=== PATIENT | male | born 1970 | race Caucasian/White ===

== ENCOUNTER 2018-02-08 17:22 | Observation (INO) | payer SELFPAY ==
[2018-02-08] MEDS ORDERED: BABY ASPIRIN 81 MG CHEW PO ONE (17:32)
[2018-02-08] MEDS ORDERED: NITRO-BID 2% UD PACKETS TOP ONE (17:38)
[2018-02-08] MEDS ORDERED: NITRO-BID 2% UD PACKETS ONE (17:39)
[2018-02-08] MEDS ORDERED: Sodium Chloride 0.9% 1000 ML 1,000 ML IV SCH (17:45)
--- NOTE | 2018-02-08 17:45 | ERPHSYRPT ---
- History of Present Illness Time Seen by Provider: 02/08/18 17:35 Historian: patient Exam Limitations: no limitations Physician History: 47-year-old white male arrives with complaint of pain in his left upper anterior chest symptoms since approximately 4:00 he began while he was walking up a flight of stairs. He states he is associated with shortness of breath with this no nausea. Patient has no history of heart problems. Past medical history includes left knee replacement and multiple surgeries on the right knee. Social history denies tobacco alcohol or illicit drug use Timing/Duration: today (4 PM) Activities at Onset: activity (Walking upstairs) Quality: pressure Location: other (left upper chest) Chest Pain Radiation: arm (left arm and bilateral shoulders) Severity of Pain-Max: moderate Severity of Pain-Current: moderate Modifying Factors: Improves With: nothing Associated Symptoms: shortness of breath, No nausea, No vomiting, No palpitations, No heartburn, No abdominal pain, No cough, No hurts to breathe, No diaphoresis, No chills, No fever, No fatigue, No weakness, No swelling/lump in chest, No syncope, No rash, No headache, No dizziness, No edema, No back pain Prior Chest Pain/Cardiac Workup: no prior chest pain Nitro Today/Relief: provided by ED (1 inch Nitropaste in the ER) Aspirin Treatment Today: 81 mg x 4 Allergies/Adverse Reactions: No Known Drug Allergies Allergy (Unverified 02/08/18 18:44) Home Medications: No Reportable Medications [No Reported Medications] 02/08/18 [History] - Review of Systems Constitutional: No Fever, No Chills Eyes: No Symptoms Ears, Nose, & Throat: No Symptoms Respiratory: Dyspnea, No Cough Cardiac: Chest Pain, No Edema, No Palpitations, No Syncope, No Orthopnea Abdominal/Gastrointestinal: No Abdominal Pain, No Nausea, No Vomiting, No Diarrhea Genitourinary Symptoms: No Dysuria Musculoskeletal: No Back Pain, No Neck Pain Skin: No Rash Neurological: No Dizziness, No Focal Weakness, No Sensory Changes Psychological: No Symptoms Endocrine: No Symptoms All Other Systems: Reviewed and Negative - Past Medical History Musculoskeletal History: Other (BILATERAL KNEE SURGERIES) - Past Surgical History Past Surgical History: Yes Neuro Surgical History: No Pertinent History Respiratory: No Pertinent History Gastrointestinal: No Pertinent History Genitourinary: No Pertinent History Musculoskeletal: Joint Replacement (left knee replacement), Orthopedic Surgery ( multiple right knee surgeries) - Nursing Vital Signs Nursing Vital Signs: Initial Vital Signs Temperature 98.4 F 02/08/18 17:24 Pulse Rate 80 02/08/18 17:24 Respiratory Rate 16 02/08/18 17:24 Blood Pressure 215/119 02/08/18 17:24 O2 Sat by Pulse Oximetry 97 02/08/18 17:24 Pain Scale Pain Intensity 2 - Physical Exam General Appearance: mild distress Eye Exam: PERRL/EOMI Ears, Nose, Throat Exam: normal ENT inspection, moist mucous membranes Neck Exam: normal inspection, non-tender, supple, full range of motion Respiratory Exam: normal breath sounds, lungs clear, No respiratory distress Cardiovascular Exam: regular rate/rhythm, normal heart sounds Gastrointestinal/Abdomen Exam: soft, No tenderness, No mass Back Exam: normal inspection, No CVA tenderness, No vertebral tenderness Extremity Exam: normal inspection, normal range of motion Neurologic Exam: alert, oriented x 3, cooperative, wellness ambassador II-XII nml as tested, normal mood/affect, sensation nml, No motor deficits SpO2 Interpretation: normal (97%) SpO2: 97 Oxygen Delivery: Room Air - Course Nursing assessment & vital signs reviewed: Yes EKG Interpreted by Me: RATE (78 bpm), Other (EKG sinus rhythm, 78 bpm, normal axis, no acute ST or T wave changes noted.) - Radiology Exams Chest X-ray Interpretation: Interpreted by me (cxr: no acute disease process) Ordered Tests: Active Orders 24 hr Category Date Time Status Bedrest with BRP/BSC ROUTINE Activity 02/08/18 19:54 Active Call Admit Doctor for Orders ON ADMISSION Care 02/08/18 19:54 Active Drip Box Tender STAT Care 02/08/18 17:33 Completed Code Status Order ROUTINE Care 02/08/18 19:54 Active EKG-ER Only STAT Care 02/08/18 17:32 Completed IV Care Q6H Care 02/08/18 19:54 Active IV Insertion STAT Care 02/08/18 17:[address] in Observation ROUTINE Care 02/08/18 19:54 Active Pulse Oximetry (ED) STAT Care 02/08/18 17:32 Completed Telemetry ROUTINE Care 02/08/18 19:54 Active Weight,Daily 0600 Care 02/08/18 19:54 Active Cardiac Diet Diet 02/08/18 Breakfast Active CHEST 1 VIEW (PORTABLE) Stat Exams 02/08/18 17:32 Taken AMYLASE Stat Lab 02/08/18 17:30 Completed CBC W DIFF AM.LAB Lab 02/09/18 05:32 Completed CBC W DIFF Stat Lab 02/08/18 17:30 Completed CMP AM.LAB Lab 02/09/18 05:32 Completed CMP Stat Lab 02/08/18 17:30 Completed D-DIMER QUANTITATION Stat Lab 02/08/18 17:30 Completed LIPASE Stat Lab 02/08/18 17:30 Completed PROTIME WITH INR Stat Lab 02/08/18 17:30 Completed PTT Stat Lab 02/08/18 17:30 Completed TROPONIN Q3H Lab 02/08/18 17:30 Completed TROPONIN Q3H Lab 02/08/18 20:55 Completed TROPONIN Q3H Lab 02/09/18 03:10 Completed TROPONIN Q3H Lab 02/09/18 05:32 Completed Pulse Oximetry CONTINUOUS RT 02/08/18 19:54 Active Medication Summary Generic Name Dose Route Start Last Admin Trade Name Freq PRN Reason Stop Dose Admin Acetaminophen 650 mg 02/08/18 22:38 02/08/18 22:56 Tylenol 325 Mg PO 03/10/18 22:37 650 mg Q4H PRN PRN Administration PAIN AND/OR FEVER Aspirin 325 mg 02/08/18 22:00 02/08/18 20:58 Ecotrin 325 Mg PO 03/10/18 21:59 325 mg HS LEWIS Administration Sodium Chloride 1,000 mls @ 50 mls/hr 02/08/18 17:45 02/08/18 17:40 Sodium Chloride 0.9% 1000 Ml IV 03/10/18 17:44 50 mls/hr .Q20H LEWIS Administration Metoprolol Succinate 25 mg 02/08/18 22:00 02/08/18 20:58 Toprol-Xl 25mg Tablets PO 03/10/18 21:59 25 mg BID LEWIS Administration Nitroglycerin 1 gm 02/08/18 22:00 02/09/18 06:23 Nitro-Bid 2% Ud Packets TOP 03/10/18 21:59 Not Given Q8HT LEWIS Discontinued Medications Generic Name Dose Route Start Last Admin Trade Name Freq PRN Reason Stop Dose Admin Aspirin 324 mg 02/08/18 17:32 02/08/18 17:30 Baby Aspirin 81 Mg Chew PO 02/08/18 17:33 324 mg STAT ONE Administration Metoprolol Succinate 25 mg 02/08/18 18:42 02/08/18 18:48 Toprol-Xl 25mg Tablets PO 02/08/18 18:43 25 mg STAT ONE Administration Metoprolol Succinate Confirm 02/08/18 18:46 Toprol-Xl 25mg Tablets Administered 02/08/18 18:47 Dose 25 mg .ROUTE .STK-MED ONE Nitroglycerin 1 gm 02/08/18 17:38 02/08/18 17:40 Nitro-Bid 2% Ud Packets TOP 02/08/18 17:39 1 gm STAT ONE Administration Nitroglycerin Confirm 02/08/18 17:39 Nitro-Bid 2% Ud Packets Administered 02/08/18 17:40 Dose 1 gm .ROUTE .STK-MED ONE Lab/Rad Data: Laboratory Result Diagrams 02/08/18 17:30 02/08/18 17:30 Laboratory Results 02/08/18 02/08/18 02/08/18 Range/Units 17:30 17:30 17:30 WBC (4.0-10.5) K/mm3 RBC (4.1-5.6) M/mm3 Hgb (12.5-18.0) gm/dl Hct (42-50) % MCV (78-100) fl MCH (26-32) pg MCHC (32-36) g/dl RDW (11.5-14.0) % Plt Count (150-450) K/mm3 MPV (6-9.5) fl Gran % (36.0-66.0) % Eos # (Auto) (0-0.5) Absolute Lymphs (auto) (1.0-4.6) Absolute Monos (auto) (0.0-1.3) Lymphocytes % (24.0-44.0) % Monocytes % (0.0-12.0) % Eosinophils % (0.00-5.0) % Basophils % (0.0-0.4) % Absolute Granulocytes (1.4-6.9) Basophils # (0-0.4) PT 11.7 (8.83-12.87) SECONDS INR 1.01 (0.8-3.0) APTT 34.6 (24.1-36.1) SECONDS D-Dimer 219 (215-500) ng/mL Sodium (137-145) mmol/L Potassium (3.5-5.1) mmol/L Chloride (98-107) mmol/L Carbon Dioxide (22-30) mmol/L Anion Gap (5-15) MEQ/L BUN (9-20) mg/dL Creatinine (0.66-1.25) mg/dL Estimated GFR ML/MIN Glucose (74-106) mg/dL Calcium (8.4-10.2) mg/dL Total Bilirubin (0.2-1.3) mg/dL AST (17-59) U/L ALT (0-50) U/L Alkaline Phosphatase (38-126) U/L Troponin I < 0.012 (0.000-0.034) ng/mL Serum Total Protein (6.3-8.2) g/dL Albumin (3.5-5.0) g/dL Amylase < 30 L (30-110) U/L Lipase 43 (23-300) U/L 02/08/18 02/08/18 02/08/18 Range/Units 17:30 17:30 00:05 WBC 7.5 (4.0-10.5) K/mm3 RBC 5.67 H (4.1-5.6) M/mm3 Hgb 16.6 (12.5-18.0) gm/dl Hct 49.0 (42-50) % MCV 86.4 (78-100) fl MCH 29.2 (26-32) pg MCHC 33.9 (32-36) g/dl RDW 14.2 H (11.5-14.0) % Plt Count 266 (150-450) K/mm3 MPV 10.7 H (6-9.5) fl Gran % 74.3 H (36.0-66.0) % Eos # (Auto) 0.07 (0-0.5) Absolute Lymphs (auto) 1.35 (1.0-4.6) Absolute Monos (auto) 0.49 (0.0-1.3) Lymphocytes % 18.1 L (24.0-44.0) % Monocytes % 6.6 (0.0-12.0) % Eosinophils % 0.9 (0.00-5.0) % Basophils % 0.1 (0.0-0.4) % Absolute Granulocytes 5.53 (1.4-6.9) Basophils # 0.01 (0-0.4) PT (8.83-12.87) SECONDS INR (0.8-3.0) APTT (24.1-36.1) SECONDS D-Dimer (215-500) ng/mL Sodium 144 (137-145) mmol/L Potassium 3.8 (3.5-5.1) mmol/L Chloride 103 (98-107) mmol/L Carbon Dioxide 23 (22-30) mmol/L Anion Gap 20.6 H (5-15) MEQ/L BUN 12 (9-20) mg/dL Creatinine 0.84 (0.66-1.25) mg/dL Estimated GFR > 60.0 ML/MIN Glucose 158 H (74-106) mg/dL Calcium 9.6 (8.4-10.2) mg/dL Total Bilirubin 1.50 H (0.2-1.3) mg/dL AST 21 (17-59) U/L ALT 26 (0-50) U/L Alkaline Phosphatase 85 (38-126) U/L Troponin I < 0.012 (0.000-0.034) ng/mL Serum Total Protein 8.1 (6.3-8.2) g/dL Albumin 4.8 (3.5-5.0) g/dL Amylase (30-110) U/L Lipase (23-300) U/L - Progress Progress: improved Air Movement: fair Progress Note: 02/08/18 18:43 47-year-old white male with history of bilateral knee surgeries with a left knee replacement. Patient arrives with complaint of pain in left anterior chest described as a pressure radiating to left arm and bilateral shoulders associated with shortness of breath. Onset at a proximally 4:00 this afternoon while the patient was descending stairs. He states onset of pain was 8 out of 10. Patient arrives to the emergency room with markedly elevated blood pressure. Patient's EKG is remarkable for sinus rhythm 70 bpm normal axis no acute ST or T wave changes. Patient's chest x-ray is within normal limits patient cardiac enzymes are normal with a troponin of less than 0.012 chemistry is essentially normal with the exception of a elevated glucose of 158 a total bilirubin 1.5 amylase and lipase are within normal limits CBC White blood cell 7.5 hemoglobin 16.6 hematocrit 49 platelets 266 D-dimer is within normal limits . Patient is given 1 inch of Nitropaste and 324 mg of aspirin. He has good improvement of his blood pressure currently blood pressure did have improvement of his blood pressure . He states that his pain now is 2/10. I have discussed the case with Dr. Marie who is pension manager for the hospital. Will place patient on observation telemetry diagnosis chest pain rule out SD, hypertension. Patient is given metoprolol XL 25 mg orally. Will continue this twice a day. Aspirin Will continue serial troponins. - Departure Time of Disposition: 19:12 Departure Disposition: Observation Clinical Impression: Chest pain, rule out acute myocardial infarction Chest pain Qualifiers: Chest pain type: unspecified Qualified Code(s): R07.9 - Chest pain, unspecified Hypertension Qualifiers: Hypertension type: unspecified Qualified Code(s): I10 - Essential (primary) hypertension Condition: Fair Critical Care Time: No
[2018-02-08 17:52] LABS: BASOPHIL % 0.1 % (0.0-0.4); Basophil (Absolute #) 0.01 (0-0.4); Eosinophil % 0.9 % (0.00-5.0); Eosinophil (Absolute #) 0.07 (0-0.5); Granulocyte Absolute (ANC) 5.53 (1.4-6.9); Granulocytes % 74.3 % (36.0-66.0); Hemoglobin 16.6 gm/dl (12.5-18.0); Lymphocyte (Absolute #) 1.35 (1.0-4.6); Lymphocytes % 18.1 % (24.0-44.0); Mean Cell Volume 86.4 fl (78-100); Mean Corpuscular Hgb Concent. 33.9 g/dl (32-36); Mean Platelet Volume 10.7 fl (6-9.5); Monocyte (Absolute #) 0.49 (0.0-1.3); Monocytes % 6.6 % (0.0-12.0); Platelet Count 266 K/mm3 (150-450); Red Blood Count 5.67 M/mm3 (4.1-5.6); Red Cell Distribution Width 14.2 % (11.5-14.0); White Blood Count 7.5 K/mm3 (4.0-10.5)
[2018-02-08 18:01] LABS: Mean Corpuscular Hemoglobin 29.2 pg (26-32)
[2018-02-08 18:06] LABS: INR 1.01 (0.8-3.0)
[2018-02-08 18:08] LABS: PTT 34.6 SECONDS (24.1-36.1)
[2018-02-08 18:11] LABS: ALBUMIN 4.8 g/dL (3.5-5.0); ALKALINE PHOSPHATASE 85 U/L (38-126); AMYLASE < 30 U/L (30-110); ANION GAP 20.6 MEQ/L (5-15); BLOOD UREA NITROGEN 12 mg/dL (9-20); CHLORIDE 103 mmol/L (98-107); Calcium 9.6 mg/dL (8.4-10.2); Carbon Dioxide 23 mmol/L (22-30); Creatinine 1 0.84 mg/dL (0.66-1.25); Glucose 158 mg/dL (74-106); LIPASE 43 U/L (23-300); Potassium 3.8 mmol/L (3.5-5.1); SGOT/AST 21 U/L (17-59); SODIUM 144 mmol/L (137-145); Total Protein 8.1 g/dL (6.3-8.2)
[2018-02-08 18:17] LABS: SGPT/ALT 26 U/L (0-50)
[2018-02-08] MEDS ORDERED: Toprol-Xl 25MG Tablets PO ONE (18:42)
[2018-02-08] MEDS ORDERED: Toprol-Xl 25MG Tablets ONE (18:46)
[2018-02-08] MEDS: Toprol-Xl 25MG Tablets PO SCH (20:58)
[2018-02-08] MEDS: NITRO-BID 2% UD PACKETS TOP SCH (20:59)
[2018-02-08] MEDS ORDERED: Ecotrin 325 MG PO SCH (22:00)
[2018-02-08] MEDS ORDERED: TYLENOL 325 MG PO PRN (22:38)
[2018-02-09 05:52] LABS: BASOPHIL % 0.1 % (0.0-0.4); Basophil (Absolute #) 0.01 (0-0.4); Eosinophil % 2.3 % (0.00-5.0); Granulocyte Absolute (ANC) 5.86 (1.4-6.9); Granulocytes % 66.7 % (36.0-66.0); Hemoglobin 15.2 gm/dl (12.5-18.0); Lymphocyte (Absolute #) 1.94 (1.0-4.6); Lymphocytes % 22.1 % (24.0-44.0); Mean Cell Volume 88.6 fl (78-100); Mean Corpuscular Hemoglobin 29.3 pg (26-32); Mean Platelet Volume 10.8 fl (6-9.5); Monocyte (Absolute #) 0.77 (0.0-1.3); Monocytes % 8.8 % (0.0-12.0); Platelet Count 232 K/mm3 (150-450); Red Blood Count 5.19 M/mm3 (4.1-5.6); Red Cell Distribution Width 14.3 % (11.5-14.0); White Blood Count 8.8 K/mm3 (4.0-10.5)
[2018-02-09 06:12] LABS: ALKALINE PHOSPHATASE 70 U/L (38-126); BLOOD UREA NITROGEN 15 mg/dL (9-20); CHLORIDE 104 mmol/L (98-107); Calcium 8.7 mg/dL (8.4-10.2); Carbon Dioxide 27 mmol/L (22-30); Creatinine 1 0.95 mg/dL (0.66-1.25); Glucose 109 mg/dL (74-106); Potassium 4.5 mmol/L (3.5-5.1); SGOT/AST 16 U/L (17-59); SGPT/ALT 20 U/L (0-50); SODIUM 141 mmol/L (137-145); Total Protein 7.1 g/dL (6.3-8.2)
[2018-02-09] MEDS: NITRO-BID 2% UD PACKETS TOP SCH (06:23)
[2018-02-09 07:13] VITALS: BP 164/99
[2018-02-09] MEDS: Toprol-Xl 25MG Tablets PO SCH (08:31)
--- NOTE | 2018-02-09 08:44 | XRAY ---
Exam: AP upright portable chest film from 02/08/2018. Comparison: None. Indication: 47-year-old male with chest pain. Findings: The level of inspiration is slightly less in average. There is mild elevation of the right hemidiaphragm with respect to the left hemidiaphragm. I believe the heart size is within normal limits for this portable technique. There is a mild left ventricular contour seen. Correlate clinically regarding hypertension. The pulmonary vessels do not appear congested. No air space infiltrates, pneumothorax, or pleural fluid is seen. Multiple EKG leads overlie the chest. No acute osseous process is seen. Impression: 1. No acute cardiopulmonary process is seen. See above.
--- NOTE | 2018-02-09 09:41 | SSS ---
DISCHARGE DIAGNOSIS: CHEST PAIN. HISTORY: The patient is a 47 year-old white male patient who presented to the emergency room with complaints of left-sided chest pain after walking up a flight of stairs. The patient reports there was some shortness of breath. No nausea or vomiting with it. The patient reports his medical history is essentially healthy with no problems other than surgery for his knee. He currently has no physician. He is visiting here from [place] taking care of his grandmother's placement to a [place] [facility] and taking care of her health care and financial issues. The patient does report a family history of heart problems in his father. He currently has no listed allergies. He has no medications that he takes. MEDICATIONS: He takes no medications. ALLERGIES: NKDA. PHYSICAL EXAMINATION: Revealed a well nourished, well developed 47 white male patient who is somewhat overweight. His vital signs on admission showed a temperature 98.4F, pulse 80, respiratory rate 16, blood pressure 215/119 on initial evaluation. He was given Nitro and then Toprol which did bring his blood pressure down nicely. HEENT: Normocephalic, atraumatic. Pupils equal round reactive to light. Extraocular movements intact. Oropharynx is pink and moist. NECK: Supple without lymphadenopathy, thyromegaly or JVD. CHEST: Clear to auscultation with good air movement bilaterally. HEART: Regular rate and rhythm without murmurs, rubs or gallops. ABDOMEN: Soft, nontender, nondistended without hepatosplenomegaly or palpable masses. EXTREMITIES: Without clubbing, cyanosis or edema. NEUROLOGIC: The patient is alert and oriented x3. LAB DATA AND TESTS: Revealed troponins all less than 0.012 on multiple occasions. His nonfasting sugar was 158, BUN 12, creatinine 0.84. Electrolytes were normal. Total bilirubin slightly elevated at 1.5. Liver enzymes were normal. He had D-dimer which was 219 which is essentially negative. International normalized ratio was 1.01. White blood cell count 7,500, hemoglobin 16.6, PLT count 266,000. Repeat CBC and metabolic panel the next morning were likewise essentially unremarkable. His rhythm tracing on telemetry showed him to be in sinus bradycardia. His initial EKG was essentially normal. He had borderline left axis deviation but he is in sinus rhythm with good R-wave progression across the precordial lead and no ST-T wave segment changes. HOSPITAL COURSE: The patient had been monitored on telemetry overnight and did complain of some chest pressure but otherwise was feeling much better. He had been given Nitro paste overnight and the Toprol did bring his blood pressure down but did leave him somewhat bradycardic. His heart rate resting now is 54. The blood pressure was down to 156/96. The patient was felt to be stable for discharge home at this time with instructions for follow up with wood box maker as soon as possible for risk stratification and evaluation of his coronary arteries. He was instructed to take aspirin 81 mg a day and up to 325 mg. Should the chest pain recur he is to return immediately to the hospital. The patient was also given Toprol 25 mg b.i.d. to help protect the heart and keep the blood pressure down until he can get in to be seen for further evaluation.
[2018-02-09 12:06] VITALS: PULSE 61; O2SAT 98
== END 2018-02-09 12:20 | disposition home or self-care (01) ==
LOC: ED 17:22 → MED SURG 19:51
PROVIDERS: ADMIT Family Medicine; ATTEND Family Medicine
DX: R07.9 Chest pain, unspecified (principal); I10 Essential (primary) hypertension
CPT/HCPCS: 36000; 36415; 71045; 80053; 82150; 83690; 84484; 85025; 85379; 85610; 85730; 93005; 93041; 93268; 96360; 96361; 99285; A9270-GY; G0378